=== PATIENT | male | born 2000 | race African-American/Black ===

== ENCOUNTER 2019-11-07 20:49 | Emergency (ER) | payer MEDICAID ==
[~2019-11-07] VITALS: Ht 177.8 cm; Wt 90.7 kg
[2019-11-07] MEDS ORDERED: ACETAMINOPHEN 325 MG TAB PO ONE (21:00)
[2019-11-07 21:17] VITALS: BP 162/84
[2019-11-07 22:06] LABS: Basophils # (auto) 0 uL; Eosinophils # (auto) 0 uL; Eosinophils % (auto) 0.1 % (0.0-7.0); Lymphocytes # (auto) 0.6 uL; Mean Corpuscular Hemoglobin 25.9 pg (28.0-32.0); Monocytes # (auto) 0.7 uL; Neutrophils # (auto) 5.6 uL; Nucleated Red Blood Cells % 0.1 %
[2019-11-07 22:07] LABS: Basophils % (auto) 0.6 % (0.0-2.0); Hematocrit 45.7 % (41.0-53.0); Hemoglobin 15.2 g/dL (13.5-17.5); Lymphocytes % (auto) 9.2 % (10.0-50.0); Mean Corpuscular Hgb Conc. 33.3 g/dL (32.0-36.0); Mean Corpuscular Volume 77.8 fL (80.0-100.0); Monocytes % (auto) 9.4 % (0.0-12.0); Neutrophils % (auto) 80.7 % (37.0-80.0); Platelet Count (auto) 280 10^3/uL (140-450); Red Blood Cells 5.88 10^6/uL (4.5-5.90); Red Cell Distribution Width 14.1 % (11.8-14.3)
[2019-11-07 22:23] LABS: Albumin 4.1 g/dL (3.4-5.0); Calcium 9.4 mg/dL (8.5-10.1); Potassium 3.7 mmol/L (3.5-5.1)
[2019-11-07 22:26] LABS: BUN/Creatinine Ratio 9.1
[2019-11-07 22:29] LABS: Bilirubin, Total 0.6 mg/dL (0.2-1.0); Total Protein 8.7 g/dL (6.4-8.2)
[2019-11-07 22:35] LABS: Lactic Acid w/Reflex 2.6 mmol/L (0.4-2.0)
== END 2019-11-08 00:30 | disposition left against medical advice (07) ==
LOC: EDBD 20:49 → ER 20:56
DX: R50.9 Fever, unspecified (principal); Z53.21 Procedure and treatment not carried out due to patient leaving prior to being seen by health care provider
CPT/HCPCS: 36415; 80053; 83605; 85025; 87040

== ENCOUNTER 2020-07-10 21:49 | Emergency (ER) | payer MEDICAID ==
[~2020-07-10] VITALS: Ht 172.7 cm; Wt 81.6 kg
[2020-07-10 22:13] VITALS: BP 128/70
== END 2020-07-11 00:34 | disposition home or self-care (01) ==
LOC: ER 21:56
DX: S46.911A Strain of unspecified muscle, fascia and tendon at shoulder and upper arm level, right arm, initial encounter (principal); W18.39XA Other fall on same level, initial encounter; Y93.67 Activity, basketball; Y92.89 Other specified places as the place of occurrence of the external cause; Y99.8 Other external cause status
CPT/HCPCS: 73030

== ENCOUNTER 2021-08-03 11:36 | Emergency (ER) | payer MEDICAID ==
[~2021-08-03] VITALS: Ht 175.3 cm; Wt 72.6 kg
== END 2021-08-03 12:49 | disposition home or self-care (01) ==
LOC: ER 11:36
DX: S09.8XXA Other specified injuries of head, initial encounter (principal); J45.909 Unspecified asthma, uncomplicated; F12.10 Cannabis abuse, uncomplicated; X58.XXXA Exposure to other specified factors, initial encounter; Y93.89 Activity, other specified; Y92.89 Other specified places as the place of occurrence of the external cause; Y99.8 Other external cause status
CPT/HCPCS: 70450